=== PATIENT | female | born 1950 | race Caucasian/White ===

== ENCOUNTER → 2016-08-05 | Outpatient (CLI) | payer MEDICARE, OTHER ==
[~2016-08-05] MED LIST: ATEN25TA PO; CALC-80 PO; CHOL100048 PO; DILT120C53 PO; ERGO400C PO; FLAX100031 PO; FLUT1DIS26 IH; HYDR-3454 PO; HYDR-3583 PO; HYDR25SU28 RC; METR500T PO; MULT-608 PO; TIOT4MIS2 IH; albuterol inhaler IH
--- NOTE | 2016-08-05 17:56 | Diagnostic Imaging Report ---
Bilateral diagnostic mammogram. COMPARISON: 07/31/15. The current study was also evaluated with a Computer Aided Detection (CAD) system. INDICATION: Patient has history of right breast cancer treated with lumpectomy and radiation. FINDINGS: Post-therapeutic changes are seen in the right breast with architectural distortion compatible with scarring. There is likely a chronic seroma or area of scarring seen in the retroareolar region similar to prior exams. Also benign-appearing calcifications are seen. The left breast demonstrates scattered fibroglandular densities with no change. IMPRESSION: Stable mammographic findings with no adverse development. ACR BI-RADS Category 2: Benign findings. Result letter will be mailed to the patient. Note: At least 10% of breast cancer is not imaged by mammography. Dictated by: Dictated on workstation # [id number]
== END ==
LOC: RAD 13:44
PROVIDERS: ATTEND Nurse Practitioner Adult Health
DX: C50.911 Malignant neoplasm of unspecified site of right female breast (principal); T88.8XXA Other specified complications of surgical and medical care, not elsewhere classified, initial encounter
CPT/HCPCS: 77066

== ENCOUNTER → 2016-08-06 | Outpatient (CLI) | payer MEDICARE, OTHER | LOC: ONC 13:32 | PROVIDERS: ATTEND Nurse Practitioner Adult Health | DX: Z08 Encounter for follow-up examination after completed treatment for malignant neoplasm (principal); Z85.3 Personal history of malignant neoplasm of breast; Z85.820 Personal history of malignant melanoma of skin; K92.1 Melena; I10 Essential (primary) hypertension; Z79.899 Other long term (current) drug therapy | CPT/HCPCS: 82274 ==

== ENCOUNTER 2016-08-29 13:28 | Outpatient (RCR) | payer MEDICARE, OTHER ==
[2016-08-29 13:47] LABS: BASOPHILS % (AUTO) 0 % (0-10); EOSINOPHILS # (AUTO) 0.1 10^3/uL (0.0-0.3); EOSINOPHILS % (AUTO) 2 % (0-10); LYMPHOCYTES # (AUTO) 1.1 X 10^3 (1.0-4.0); LYMPHOCYTES % (AUTO) 20 % (12-44); MEAN CORPUSCULAR HEMOGLOBIN 31 PG (25-34); MEAN CORPUSCULAR HGB CONC 33 G/DL (32-36); MEAN CORPUSCULAR VOLUME 92 FL (80-99); MEAN PLATELET VOLUME 9.7 FL (7.4-10.4); MONOCYTES # (AUTO) 0.7 X 10^3 (0.0-1.0); MONOCYTES % (AUTO) 12 % (0-12); NEUTROPHILS # (AUTO) 3.8 X 10^3 (1.8-7.8); NEUTROPHILS % (AUTO) 66 % (42-75); PLATELET COUNT 294 10^3/uL (130-400); RED BLOOD COUNT 4.59 10^6/uL (4.35-5.85); RED CELL DISTRIBUTION WIDTH 13.5 % (10.0-14.5); WHITE BLOOD COUNT 5.7 10^3/uL (4.3-11.0)
[2016-08-29 14:27] LABS: ALANINE AMINOTRANSFERASE 16 U/L (0-55); ALBUMIN 4.1 G/DL (3.2-4.5); ANION GAP 7 MMOL/L (5-14); ASPARTATE AMINO TRANSFERASE 16 U/L (5-34); BILIRUBIN,TOTAL 0.5 MG/DL (0.1-1.0); BLOOD UREA NITROGEN 14 MG/DL (7-18); BUN/CREATININE RATIO 16; CALCIUM 9.5 MG/DL (8.5-10.1); CARBON DIOXIDE 29 MMOL/L (21-32); CHLORIDE 105 MMOL/L (98-107); CREATININE SERUM 0.86 MG/DL (0.60-1.30); GFR ESTIMATED > 60; GLUCOSE 83 MG/DL (70-105); LACTATE DEHYDROGENASE 166 U/L (125-220); POTASSIUM 4.2 MMOL/L (3.6-5.0); SODIUM 141 MMOL/L (135-145); TOTAL PROTEIN 6.4 G/DL (6.4-8.2)
== END 2016-11-27 | disposition home or self-care (01) ==
LOC: ONC 13:28
PROVIDERS: ATTEND Internal Medicine Hematology & Oncology
DX: Z08 Encounter for follow-up examination after completed treatment for malignant neoplasm (principal); Z85.3 Personal history of malignant neoplasm of breast; Z85.820 Personal history of malignant melanoma of skin; I10 Essential (primary) hypertension
CPT/HCPCS: 36415; 80053; 83615; 85025; 99213

== ENCOUNTER → 2016-09-12 | Outpatient (CLI) | payer MEDICARE, OTHER ==
--- NOTE | 2016-09-12 18:22 | Diagnostic Imaging Report ---
Examination: DEXA scan. Indication: osteopenia Technique: Bone mineral density estimated based on dual energy radiography over the lumbar spine and femoral necks, was performed. Findings: The lumbar spine T-score is -0.9. This is 5.5% decreased density measurements compared to 2008 exam. T score over the left femoral neck is -0.9 and on the right side is -1.1. This is 7% decreased density measurements compared to 2008. IMPRESSION: Osteopenia. Dictated by: Dictated on workstation # [id number]
== END ==
LOC: RAD 11:33
PROVIDERS: ATTEND Nurse Practitioner Adult Health
DX: Z13.820 Encounter for screening for osteoporosis (principal); Z78.0 Asymptomatic menopausal state; C50.111 Malignant neoplasm of central portion of right female breast; M85.88 Other specified disorders of bone density and structure, other site
CPT/HCPCS: 77080

== ENCOUNTER → 2017-07-24 | Outpatient (CLI) | payer MEDICARE, OTHER ==
--- NOTE | 2017-07-25 14:23 | Diagnostic Imaging Report ---
Procedure: Digital mammogram. Indication: Bilateral screening. Comparison: The study was compared to the prior exams of 08/05/2016, 07/31/2015 and 07/27/2014. At this time there are no current complaints. Findings: By history, the patient has a diagnosis of a right lumpectomy for carcinoma and subsequent radiation therapy. On this study the post surgical and post treatment changes involving the right breast seen on previous exams are again evident and do not seem to have changed significantly. There is no sign of recurrent malignancy in the lumpectomy site in the retroareolar region. There are scattered fibroglandular densities in both breasts which could obscure a lesion. When compared to the prior study, there does not appear to have been any significant change. There is no primary or secondary sign of malignancy noted. Impression: 1. The post surgical and post treatment changes involving the right breast appear stable. There is no sign of recurrent malignancy. 2. There is no other evidence for malignancy involving either breast. ACR BI-RADS Category 1: Negative. Result letter will be mailed to the patient. Note: At least 10% of breast cancer is not imaged by mammography. Dictated by: Dictated on workstation # [id number]
== END ==
LOC: RAD 14:01
PROVIDERS: ATTEND Nurse Practitioner Adult Health
DX: Z12.31 Encounter for screening mammogram for malignant neoplasm of breast (principal); Z85.3 Personal history of malignant neoplasm of breast
CPT/HCPCS: 77067

== ENCOUNTER 2017-08-28 14:02 | Outpatient (RCR) | payer MEDICARE, OTHER ==
[2017-08-28 14:16] LABS: BASOPHILS % (AUTO) 1 % (0-10); EOSINOPHILS # (AUTO) 0.2 10^3/uL (0.0-0.3); EOSINOPHILS % (AUTO) 2 % (0-10); HEMATOCRIT 43 % (35-52); HEMOGLOBIN 14.2 G/DL (11.5-16.0); LYMPHOCYTES # (AUTO) 1.5 X 10^3 (1.0-4.0); LYMPHOCYTES % (AUTO) 21 % (12-44); MEAN CORPUSCULAR HEMOGLOBIN 31 PG (25-34); MEAN CORPUSCULAR HGB CONC 33 G/DL (32-36); MEAN CORPUSCULAR VOLUME 91 FL (80-99); MEAN PLATELET VOLUME 9.6 FL (7.4-10.4); MONOCYTES # (AUTO) 0.8 X 10^3 (0.0-1.0); MONOCYTES % (AUTO) 11 % (0-12); NEUTROPHILS # (AUTO) 4.5 X 10^3 (1.8-7.8); NEUTROPHILS % (AUTO) 65 % (42-75); PLATELET COUNT 333 10^3/uL (130-400); RED BLOOD COUNT 4.65 10^6/uL (4.35-5.85); RED CELL DISTRIBUTION WIDTH 13.7 % (10.0-14.5); WHITE BLOOD COUNT 6.9 10^3/uL (4.3-11.0)
[2017-08-28 14:32] LABS: ALANINE AMINOTRANSFERASE 18 U/L (0-55); ALBUMIN 4.2 GM/DL (3.2-4.5); ALKALINE PHOSPHATASE 63 U/L (40-136); BILIRUBIN,TOTAL 0.6 MG/DL (0.1-1.0); BUN/CREATININE RATIO 14; CALCIUM 9.1 MG/DL (8.5-10.1); CARBON DIOXIDE 26 MMOL/L (21-32); CHLORIDE 105 MMOL/L (98-107); CREATININE SERUM 0.84 MG/DL (0.60-1.30); GFR ESTIMATED > 60; GLUCOSE 136 MG/DL (70-105); POTASSIUM 4.2 MMOL/L (3.6-5.0); SODIUM 139 MMOL/L (135-145); TOTAL PROTEIN 6.6 GM/DL (6.4-8.2)
== END 2017-11-26 | disposition home or self-care (01) ==
LOC: ONC 14:02
PROVIDERS: ATTEND Internal Medicine Hematology & Oncology
DX: Z08 Encounter for follow-up examination after completed treatment for malignant neoplasm (principal); Z85.3 Personal history of malignant neoplasm of breast; Z85.820 Personal history of malignant melanoma of skin; E55.9 Vitamin D deficiency, unspecified; M85.80 Other specified disorders of bone density and structure, unspecified site; I10 Essential (primary) hypertension; J45.909 Unspecified asthma, uncomplicated; Z92.3 Personal history of irradiation; Z79.899 Other long term (current) drug therapy
CPT/HCPCS: 36415; 80053; 82306; 83615; 85025; 99213

== ENCOUNTER → 2018-04-08 | Outpatient (CLI) | payer MEDICARE, OTHER ==
--- NOTE | 2018-04-08 13:38 | Diagnostic Imaging Report ---
INDICATION: Cough, dyspnea. COMPARISON: 03/06/2015. FINDINGS: Frontal and lateral views of the chest demonstrate normal heart size and pulmonary vascularity. The lungs are clear. There are no signs of infiltrate, pleural effusions or pneumothoraces. The visualized osseous structures show no acute abnormalities. IMPRESSION: 1. No acute process. No signs of infiltrates, effusions or pneumothoraces. Dictated by: Dictated on workstation # [id number]
== END ==
LOC: RAD 12:15
PROVIDERS: ATTEND Nurse Practitioner Family
DX: R05 Cough (principal); R06.00 Dyspnea, unspecified
CPT/HCPCS: 71046

== ENCOUNTER → 2018-07-29 | Outpatient (CLI) | payer MEDICARE, OTHER ==
[~2018-07-29] MED LIST changes: -HYDR-3454 PO; +HYDR-3455 PO
--- NOTE | 2018-07-30 20:19 | Diagnostic Imaging Report ---
INDICATION: Screening. The current study was also evaluated with a Computer Aided Detection (CAD) system. Comparison made with prior examination from 07/24/2017 back through 12/10/2011. 3D tomosynthesis was performed and reviewed. FINDINGS: There are scattered fibroglandular densities bilaterally. There are stable post therapeutic changes in the right breast. There are numerous benign-type calcifications in the right breast. There is no new dominant mass, spiculated lesion, or suspicious calcification identified. The skin, nipples, and axillae are unremarkable. IMPRESSION: Benign. ACR BI-RADS Category 2: Benign findings. Result letter will be mailed to the patient. Note: At least 10% of breast cancer is not imaged by mammography. Dictated on workstation # [id number]
== END ==
LOC: RAD 14:32
PROVIDERS: ATTEND Nurse Practitioner Adult Health
DX: Z12.31 Encounter for screening mammogram for malignant neoplasm of breast (principal); C50.111 Malignant neoplasm of central portion of right female breast
CPT/HCPCS: 77067

== ENCOUNTER 2018-08-27 13:28 | Outpatient (RCR) | payer MEDICARE, OTHER ==
[2018-08-27 13:44] LABS: BASOPHILS % (AUTO) 1 % (0-10); EOSINOPHILS # (AUTO) 0.1 10^3/uL (0.0-0.3); EOSINOPHILS % (AUTO) 1 % (0-10); HEMATOCRIT 44 % (35-52); HEMOGLOBIN 14.4 G/DL (11.5-16.0); LYMPHOCYTES # (AUTO) 1.3 X 10^3 (1.0-4.0); LYMPHOCYTES % (AUTO) 18 % (12-44); MEAN CORPUSCULAR HEMOGLOBIN 30 PG (25-34); MEAN CORPUSCULAR HGB CONC 33 G/DL (32-36); MEAN CORPUSCULAR VOLUME 92 FL (80-99); MEAN PLATELET VOLUME 9.8 FL (7.4-10.4); MONOCYTES # (AUTO) 0.9 X 10^3 (0.0-1.0); MONOCYTES % (AUTO) 12 % (0-12); NEUTROPHILS % (AUTO) 68 % (42-75); PLATELET COUNT 303 10^3/uL (130-400); RED CELL DISTRIBUTION WIDTH 13.3 % (10.0-14.5); WHITE BLOOD COUNT 7.3 10^3/uL (4.3-11.0)
[2018-08-27 14:11] LABS: ALANINE AMINOTRANSFERASE 16 U/L (0-55); ALBUMIN 4.2 GM/DL (3.2-4.5); ALKALINE PHOSPHATASE 70 U/L (40-136); BILIRUBIN,TOTAL 0.6 MG/DL (0.1-1.0); BUN/CREATININE RATIO 13; CALCIUM 9.7 MG/DL (8.5-10.1); CARBON DIOXIDE 25 MMOL/L (21-32); CHLORIDE 104 MMOL/L (98-107); CREATININE SERUM 0.84 MG/DL (0.60-1.30); GFR ESTIMATED > 60; GLUCOSE 84 MG/DL (70-105); POTASSIUM 3.7 MMOL/L (3.6-5.0); SODIUM 137 MMOL/L (135-145); TOTAL PROTEIN 6.7 GM/DL (6.4-8.2)
== END 2018-11-25 | disposition home or self-care (01) ==
LOC: ONC 13:28
PROVIDERS: ATTEND Internal Medicine Hematology & Oncology
DX: Z08 Encounter for follow-up examination after completed treatment for malignant neoplasm (principal); Z85.3 Personal history of malignant neoplasm of breast; Z85.820 Personal history of malignant melanoma of skin; E55.9 Vitamin D deficiency, unspecified; M85.80 Other specified disorders of bone density and structure, unspecified site; I10 Essential (primary) hypertension; J45.909 Unspecified asthma, uncomplicated; Z92.3 Personal history of irradiation; Z79.899 Other long term (current) drug therapy
CPT/HCPCS: 36415; 80053; 82306; 83615; 85025; 99213

== ENCOUNTER → 2019-08-25 | Outpatient (CLI) | payer MEDICARE, OTHER ==
--- NOTE | 2019-08-25 17:53 | Diagnostic Imaging Report ---
INDICATION: Screening. History of breast CA. At this time there are no current complaints. EXAMINATION: Digital mammogram bilateral screening. COMPARISON: This study was compared to the prior exams of 07/29/2018, 07/24/2017 and 08/05/2016. FINDINGS: The patient has had a prior biopsy of the right breast for carcinoma. The postsurgical and post-therapeutic changes involving the right breast, seen on the prior exams, are again evident and no different. There is no evidence of recurrent malignancy involving the right breast. There are scattered fibroglandular densities in both breasts which could obscure a lesion. Overall, there has been no significant change when compared to the prior exam. There is no primary or secondary sign of malignancy noted. IMPRESSION: The postsurgical changes involving the right breast appear stable. There is no evidence for malignancy involving either breast. ACR BI-RADS Category 1: Negative. Result letter will be mailed to the patient. Note: At least 10% of breast cancer is not imaged by mammography. Dictated by: Dictated on workstation # [id number]
== END ==
LOC: RAD 14:37
PROVIDERS: ATTEND Internal Medicine Hematology & Oncology
DX: Z12.31 Encounter for screening mammogram for malignant neoplasm of breast (principal); C50.919 Malignant neoplasm of unspecified site of unspecified female breast
CPT/HCPCS: 77063; 77067

== ENCOUNTER → 2019-09-02 | Outpatient (CLI) | payer MEDICARE, OTHER | LOC: LAB 15:17 | PROVIDERS: ATTEND Family Medicine | DX: R94.6 Abnormal results of thyroid function studies (principal) ==

== ENCOUNTER → 2019-09-02 | Outpatient (CLI) | payer MEDICARE, OTHER ==
[2019-09-02 13:20] LABS: BASOPHILS % (AUTO) 0 % (0-10); EOSINOPHILS # (AUTO) 0.1 10^3/uL (0.0-0.3); EOSINOPHILS % (AUTO) 2 % (0-10); HEMATOCRIT 44 % (35-52); HEMOGLOBIN 14.7 G/DL (11.5-16.0); LYMPHOCYTES # (AUTO) 1.1 X 10^3 (1.0-4.0); LYMPHOCYTES % (AUTO) 17 % (12-44); MEAN CORPUSCULAR HEMOGLOBIN 31 PG (25-34); MEAN CORPUSCULAR HGB CONC 34 G/DL (32-36); MEAN CORPUSCULAR VOLUME 91 FL (80-99); MEAN PLATELET VOLUME 9.5 FL (7.4-10.4); MONOCYTES # (AUTO) 0.8 X 10^3 (0.0-1.0); MONOCYTES % (AUTO) 12 % (0-12); NEUTROPHILS # (AUTO) 4.7 X 10^3 (1.8-7.8); NEUTROPHILS % (AUTO) 69 % (42-75); PLATELET COUNT 310 10^3/uL (130-400); RED CELL DISTRIBUTION WIDTH 13.6 % (10.0-14.5); WHITE BLOOD COUNT 6.7 10^3/uL (4.3-11.0)
[2019-09-02 13:44] LABS: ALANINE AMINOTRANSFERASE 15 U/L (0-55); ALBUMIN 4.2 GM/DL (3.2-4.5); ALKALINE PHOSPHATASE 79 U/L (40-136); BILIRUBIN,TOTAL 0.5 MG/DL (0.1-1.0); BUN/CREATININE RATIO 12; CALCIUM 9.3 MG/DL (8.5-10.1); CARBON DIOXIDE 28 MMOL/L (21-32); CHLORIDE 104 MMOL/L (98-107); CREATININE SERUM 0.82 MG/DL (0.60-1.30); GFR ESTIMATED > 60; GLUCOSE 99 MG/DL (70-105); POTASSIUM 3.8 MMOL/L (3.6-5.0); SODIUM 139 MMOL/L (135-145); TOTAL PROTEIN 6.8 GM/DL (6.4-8.2)
== END ==
LOC: ONC 13:03
PROVIDERS: ATTEND Internal Medicine Hematology & Oncology
DX: E55.9 Vitamin D deficiency, unspecified (principal); I10 Essential (primary) hypertension; Z85.3 Personal history of malignant neoplasm of breast; Z85.820 Personal history of malignant melanoma of skin
CPT/HCPCS: 80053; 82306; 83615; 85025; 99213

== ENCOUNTER → 2019-09-15 | Outpatient (CLI) | payer MEDICARE, OTHER ==
--- NOTE | 2019-09-15 15:51 | Diagnostic Imaging Report ---
PROCEDURE: US Thyroid. TECHNIQUE: Multiple real-time grayscale images were obtained of the thyroid in various projections. INDICATION: Abnormal thyroid labs. FINDINGS: Right lobe of the thyroid measures 5.5 x 1.6 x 2.1 cm and the left lobe measures 4.3 x 1.6 x 1.6 cm. Isthmus is 0.4 cm in thickness. Both lobes of the thyroid are somewhat heterogeneous, but no discrete thyroid mass is detected. IMPRESSION: Thyroid heterogeneity. No discrete thyroid mass is identified. Dictated by: Dictated on workstation # [id number]
== END ==
LOC: RAD 14:21
PROVIDERS: ATTEND Nurse Practitioner Family
DX: R94.6 Abnormal results of thyroid function studies (principal); Z92.3 Personal history of irradiation
CPT/HCPCS: 76536

== ENCOUNTER 2020-02-01 05:51 | Outpatient (RCR) | payer MEDICARE, OTHER | END 2020-05-01 | disposition home or self-care (01) | LOC: PREOP 05:51 → EDSTATUS 10:00 | PROVIDERS: ATTEND Surgery | DX: Z01.818 Encounter for other preprocedural examination (principal); Z80.0 Family history of malignant neoplasm of digestive organs ==

== ENCOUNTER → 2020-08-30 | Outpatient (CLI) | payer MEDICARE, OTHER ==
--- NOTE | 2020-08-31 09:39 | Diagnostic Imaging Report ---
INDICATION: Routine screening. Comparison is made with prior mammogram 08/25/2019 and 07/29/2018. 2-D and 3-D bilateral screening mammography was performed with CAD. Post therapeutic changes in the right breast appears stable. There are benign calcifications in the right breast. No definite mass or malignant appearing microcalcifications are seen. Left breast is unremarkable. Right axilla contains surgical clips. IMPRESSION: BI-RADS Category 2 No mammographic features suspicious for malignancy are identified. ACR BI-RADS Category 2: Benign findings. Result letter will be mailed to the patient. Note: At least 10% of breast cancer is not imaged by mammography. Dictated by: Dictated on workstation # [id number]
== END ==
LOC: RAD 14:45
PROVIDERS: ATTEND Nurse Practitioner Adult Health
DX: Z12.31 Encounter for screening mammogram for malignant neoplasm of breast (principal); Z85.3 Personal history of malignant neoplasm of breast
CPT/HCPCS: 77063; 77067

== ENCOUNTER → 2020-09-07 | Outpatient (CLI) | payer MEDICARE ==
[2020-09-07 13:37] LABS: BASOPHILS % (AUTO) 1 % (0-10); EOSINOPHILS # (AUTO) 0.1 10^3/uL (0.0-0.3); EOSINOPHILS % (AUTO) 1 % (0-10); HEMATOCRIT 43 % (35-52); HEMOGLOBIN 14.1 g/dL (11.5-16.0); LYMPHOCYTES # (AUTO) 1.2 10^3/uL (1.0-4.0); LYMPHOCYTES % (AUTO) 19 % (12-44); MEAN CORPUSCULAR HEMOGLOBIN 30 pg (25-34); MEAN CORPUSCULAR HGB CONC 33 g/dL (32-36); MEAN CORPUSCULAR VOLUME 92 fL (80-99); MEAN PLATELET VOLUME 9.6 fL (9.0-12.2); MONOCYTES # (AUTO) 0.7 10^3/uL (0.0-1.0); MONOCYTES % (AUTO) 12 % (0-12); NEUTROPHILS # (AUTO) 4.1 10^3/uL (1.8-7.8); NEUTROPHILS % (AUTO) 67 % (42-75); PLATELET COUNT 291 10^3/uL (130-400); WHITE BLOOD COUNT 6.2 10^3/uL (4.3-11.0)
[2020-09-07 13:55] LABS: ALANINE AMINOTRANSFERASE 16 U/L (0-55); ALKALINE PHOSPHATASE 62 U/L (40-136); BILIRUBIN,TOTAL 0.5 MG/DL (0.1-1.0); BUN/CREATININE RATIO 14; CALCIUM 8.7 MG/DL (8.5-10.1); CARBON DIOXIDE 28 MMOL/L (21-32); CHLORIDE 103 MMOL/L (98-107); CREATININE SERUM 0.84 MG/DL (0.60-1.30); GFR ESTIMATED > 60; GLUCOSE 98 MG/DL (70-105); POTASSIUM 3.8 MMOL/L (3.6-5.0); SODIUM 137 MMOL/L (135-145); TOTAL PROTEIN 6.5 GM/DL (6.4-8.2)
== END ==
LOC: ONC 13:34
PROVIDERS: ATTEND Internal Medicine Hematology & Oncology
DX: D05.11 Intraductal carcinoma in situ of right breast (principal); I10 Essential (primary) hypertension; E55.9 Vitamin D deficiency, unspecified; Z98.890 Other specified postprocedural states; Z90.11 Acquired absence of right breast and nipple; Z92.3 Personal history of irradiation; Z85.820 Personal history of malignant melanoma of skin
CPT/HCPCS: 80053; 82306; 83615; 85025; G0463; 99213

== ENCOUNTER 2020-11-07 05:30 | Outpatient (CLI) | payer MEDICARE, OTHER ==
[~2020-11-07] VITALS: Ht 162.6 cm; Wt 91.6 kg
[2020-11-08] MEDS ORDERED: CALC-823 PO (11:12)
[2020-11-08] MEDS ORDERED: BIOT10005 PO (11:12)
[2020-11-08] MEDS ORDERED: LEVO25CA4 PO (11:12)
== END 2020-11-08 15:59 | disposition home or self-care (01) ==
LOC: PREOP 05:30
PROVIDERS: ATTEND Surgery
DX: Z01.818 Encounter for other preprocedural examination (principal)

== ENCOUNTER 2020-11-14 09:00 | Day surgery (SDC) | payer MEDICARE, OTHER ==
[~2020-11-14] VITALS: Ht 163 cm; Wt 92.0 kg
[~2020-11-14 09:00] MED LIST changes: +BIOT10005 PO; +CALC-823 PO; +LEVO25CA4 PO
[2020-11-14] MEDS ORDERED: LACTATED RINGERS 1,000 ML IV ONE (09:05)
[2020-11-14] MEDS ORDERED: LACTATED RINGERS 1,000 ML IV STA (09:07)
[2020-11-14 09:15] VITALS: BP 155/92
[2020-11-14] MEDS ORDERED: PROPOFOL INJECTION 50 ML IV ONE (11:05)
[2020-11-14] MEDS ORDERED: MIDAZOLAM 2 MG/2 ML (VERSED) VIAL ONE (11:05)
[2020-11-14 11:45] VITALS: BP 121/76
[2020-11-14 11:50] VITALS: BP 123/73
[2020-11-14 11:55] VITALS: BP_SYST 116; BP_SYST 147; BP_DIAS 73; BP_DIAS 74
--- NOTE | 2020-11-14 11:57 | Progress Note-Post Operative ---
Post-Operative Progess Note Surgeon (s)/Leather Cutter (s) Surgeon MANSOOR CLOUD DO Leather Cutter: na Pre-Operative Diagnosis family hx colon ca Post-Operative Diagnosis colon polyps Procedure & Operative Findings Date of Procedure 11/14/20 Procedure Performed/Findings colonoscopy c snare polypectomy x 5 Anesthesia Type per forest logistics manager Estimated Blood Loss Estimated blood loss (mL): scant Specimens/Packing Specimens Removed colon polyps MANSOOR CLOUD DO Nov 14, 2020 11:57
--- NOTE | 2020-11-14 12:03 | Discharge Inst-Simple/Standard ---
Discharge Inst-Standard Patient Instructions/Follow Up Plan of Care/Instructions/FU: 2 weeks [place] Activity as Tolerated: Yes Discharge Diet: Regular Diet MANSOOR CLOUD DO Nov 14, 2020 12:02
[2020-11-14 12:27] VITALS: BP 128/80
[2020-11-14 12:29] VITALS: BP 128/80
--- NOTE | 2020-11-14 12:33 | Anesthesia-General Post-Op ---
MAC Patient Condition Mental Status/LOC: Same as Preop Cardiovascular: Satisfactory Nausea/Vomiting: Absent Respiratory: Satisfactory Pain: Controlled Complications: Absent Post Op Complications Complications None Follow Up Care/Instructions Patient Instructions None needed. Anesthesiology Discharge Order Discharge Order Patient is doing well, no complaints, stable vital signs, no apparent adverse anesthesia problems. No complications reported per nursing. TAVO FERMIN CRNA Nov 14, 2020 12:33
--- NOTE | 2020-11-14 17:18 | OPERATIVE REPORT ---
DATE OF SERVICE: 11/14/2020 PREOPERATIVE DIAGNOSIS: Family history of colon cancer. POSTOPERATIVE DIAGNOSIS: Colon polyps. PROCEDURE: Colonoscopy with snare polypectomy x5. SURGEON: Mansoor Miguel DO ANESTHESIA: Per WORKDAY DIRECTOR. ESTIMATED BLOOD LOSS: Scant. COMPLICATIONS: None. INDICATIONS: The patient is a 70-year-old female with family history of colon cancer needing screening colonoscopy. She understands risks and benefits of procedure and wished to proceed with procedure. Consent was signed in the chart. DESCRIPTION OF PROCEDURE: The patient was taken to the endoscopy suite, placed in left lateral recumbent position. Timeout was performed. Digital rectal exam was performed. Noting postoperative surgical changes from hemorrhoidal stapling. Scope was inserted in the rectum, advanced all the way to cecum with minimal difficulty. Prep was adequate. Scope was then slowly retracted back. There were no polyps, masses or ulcerations within the cecum. In the ascending colon, a small polyp was present, which snare polypectomy was performed. Scope was then continuously retracted back in the hepatic flexure, another polyp was present, which snare polypectomy was performed. Scope was then continuously retracted back. No polyps, masses or ulcerations within the transverse colon. In the descending colon, there were 2 polyps, which snare polypectomies were performed. Scope was then continuously retracted back into the sigmoid where another polyp was present, which snare polypectomy was performed. Scope was then slowly retracted back into the rectum, where it was also retroflexed noting postsurgical changes and noting the stapling sutures with some slight granulation tissue around it. Scope was then returned to its normal position, slowly withdrawn until completely removed, noting no other pathology. The patient tolerated procedure well without any complications. She was taken to recovery room in stable condition. RECOMMENDATIONS: The patient will need repeat colonoscopy in 3 to 5 years depending upon pathology. Any issues before that be seen at that time. Job ID: [id number] DocumentID: [id number] Dictated Date: 11/14/2020 12:05:30 Special Officer Date: 11/14/2020 17:17:46 Dictated By: MANSOOR MIGUEL DO
== END 2020-11-14 12:33 | disposition home or self-care (01) ==
LOC: ENDO 09:00
PROVIDERS: ATTEND Surgery
DX: Z12.11 Encounter for screening for malignant neoplasm of colon (principal); D12.2 Benign neoplasm of ascending colon; D12.5 Benign neoplasm of sigmoid colon; K63.5 Polyp of colon; J45.909 Unspecified asthma, uncomplicated; E03.9 Hypothyroidism, unspecified; Z79.899 Other long term (current) drug therapy; Z79.890 Hormone replacement therapy; Z80.0 Family history of malignant neoplasm of digestive organs
CPT/HCPCS: 88305

== ENCOUNTER → 2021-09-03 | Outpatient (CLI) | payer MEDICARE ==
--- NOTE | 2021-09-03 16:19 | Diagnostic Imaging Report ---
INDICATION: Routine screening. COMPARISON: 08/30/2020 and 08/25/2019. TECHNIQUE: 2D and 3D bilateral screening mammography was performed with CAD. FINDINGS: Scattered fibroglandular densities are identified bilaterally. Post therapeutic changes in the right breast appear stable. Benign calcifications in the right breast are again noted. No recurrent mass or malignant-appearing microcalcifications are seen. The left axilla is unremarkable. The right axilla contains calcifications. IMPRESSION: No mammographic features suspicious for malignancy are identified. ACR BI-RADS Category 2: Benign findings. Result letter will be mailed to the patient. Note: At least 10% of breast cancer is not imaged by mammography. Dictated by: Dictated on workstation # [id number]
== END ==
LOC: RAD 15:30
PROVIDERS: ATTEND Internal Medicine Hematology & Oncology
DX: Z12.31 Encounter for screening mammogram for malignant neoplasm of breast (principal)
CPT/HCPCS: 77063; 77067

== ENCOUNTER → 2021-12-25 | Outpatient (CLI) | payer MEDICARE ==
--- NOTE | 2021-12-25 11:46 | Diagnostic Imaging Report ---
INDICATION: Left lower extremity pain and edema COMPARISON: None TECHNIQUE: Duplex, burton-scale and color-flow imaging of the left lower extremity venous system was performed. FINDINGS: The common femoral vein, superficial femoral vein, profunda femoris, and popliteal veins are normal. These vessels show normal compressibility, color flow, and doppler augmentation. The deep calf veins, although not very well seen, demonstrate no distinct intraluminal thrombus. IMPRESSION: Negative venous Doppler of the left lower extremity. Dictated by: Dictated on workstation # [id number]
--- NOTE | 2021-12-25 14:10 | Diagnostic Imaging Report ---
INDICATION: Postmenopausal state COMPARISON: 09/12/2016 FINDINGS: AP Spine L2-L4: [BMD (g/cm2): 1.027] [T-Score: -1.4] [Z-Score: -0.6] [BMD Previous: 1.098] [BMD % Change: -6.5]* LT Hip Neck: [BMD (g/cm2): 0.832] [T-Score: -1.5] [Z-Score: -0.3] LT Hip Total: [BMD (g/cm2):0.939] [T-Score:-0.5] [Z-Score: 0.4] [BMD Previous: 0.898] [BMD % Change: 4.6] RT Hip Neck: [BMD (g/cm2):0.802] [T-Score:-1.7] [Z-Score:-0.5] RT Hip Total: [BMD (g/cm2):0.881] [T-score:-1.0] [Z-Score:-0.1] [BMD Previous:0.871] [BMD % Change:1.1] *Indicates significant change from prior examination based on 95% confidence level. World Health Organization criteria for BMD interpretation classify patients as Normal (T-score at or above -1.0), Osteopenic (T-score between -1.0 and -2.5) or Osteoporotic (T-score at or below -2.5). LIMITATIONS AND MODIFICATION: None. FRACTURE RISK (FRAX SCORE): The ten year probability of (%): Major Osteoporotic Fracture: [10.2] Hip Fracture: [1.7] IMPRESSION: 1. Osteopenia (Low bone mass). 2. Bone mineral density within the lumbar spine has significantly decreased since the prior examination. Bone mineral density within the hips has not significantly changed since the prior exam. 3. See below National Osteoporosis Foundation guidelines on when to potentially initiate pharmacologic therapy. Based on the National Osteoporosis Foundation Guidelines, pharmacologic treatment should be initiated in any of the following, unless clinical conditions suggest otherwise: * Any patient with prior fragility fracture of the hip or vertebrae. A spine fracture indicates 5X risk for subsequent spine fracture and 2X risk for subsequent hip fracture. * Osteoporosis (T-score <-2.5). * Postmenopausal women and men age 50 and older with low bone mass/osteopenia (T-score between -1.0 and -2.5) by DXA and 10-year major osteoporotic fracture greater than 20% or a 10-year probability of hip fracture greater than 3%. These fracture risks are supplied above in the FRAX score, if applicable. * Clinician judgement and/or patient preferences may indicate treatment for people with 10-year fracture probabilities above or below these levels. Dictated by: Dictated on workstation # [id number]
== END ==
LOC: RAD 09:49
PROVIDERS: ATTEND Nurse Practitioner Family
DX: M85.80 Other specified disorders of bone density and structure, unspecified site (principal); M79.662 Pain in left lower leg; M79.89 Other specified soft tissue disorders; Z78.0 Asymptomatic menopausal state
CPT/HCPCS: 77080

== ENCOUNTER → 2022-09-04 | Outpatient (CLI) | payer MEDICARE ==
--- NOTE | 2022-09-04 20:09 | Diagnostic Imaging Report ---
INDICATION: Screening. EXAMINATION: Bilateral 3D screening mammograms with CAD. The current study was also evaluated with a Computer Aided Detection (CAD) system. COMPARISONS: 09/03/2021 and 08/30/2020. FINDINGS: Smaller right breast volume with surgical clips in right axilla and retroareolar architectural distortion have not significantly changed. There is no evidence of new dominant mass or suspicious calcification in either breast. IMPRESSION: Continued physical examination and annual mammographic follow-up are recommended. ACR BI-RADS Category 2: Benign findings. Result letter will be mailed to the patient. Note: At least 10% of breast cancer is not imaged by mammography. Dictated by: Dictated on workstation # [id number]
== END ==
LOC: RAD 15:17
PROVIDERS: ATTEND Internal Medicine Hematology & Oncology
DX: Z12.31 Encounter for screening mammogram for malignant neoplasm of breast (principal); Z85.3 Personal history of malignant neoplasm of breast
CPT/HCPCS: 77063; 77067